=== PATIENT | male | born 1995 | race Two or more races ===

== ENCOUNTER 2024-01-24 12:29 | Emergency (ER) | payer OTHER ==
[~2024-01-24] VITALS: Ht 185.4 cm; Wt 96.8 kg
[2024-01-24] MEDS ORDERED: IBUP-1022 PO (12:48)
[2024-01-24] MEDS ORDERED: ACET32TAB PO (12:48)
[2024-01-24 13:18] LABS: BASO % 0.2 % (0.0-1.0); EOS # 1.5 10^3/uL (0.0-0.5); EOS % 15.3 % (0.0-3.0); HEMATOCRIT 47.4 % (42.0-52.0); LYMPH # 2.6 10^3/uL (1.5-5.0); LYMPH % 26.3 % (24.0-44.0); MEAN CORPUSCULAR HEMOGLOBIN 29.5 pg (27.0-33.0); MEAN CORPUSCULAR HGB CONC 35.9 g/dl (32.0-36.5); MEAN CORPUSCULAR VOLUME 82.3 fl (80.0-96.0); MONO # 0.8 10^3/uL (0.0-0.8); MONO % 8.6 % (2.0-8.0); NEUTROPHILS # 4.8 10^3/uL (1.5-8.5); NEUTROPHILS % 49.3 % (36.0-66.0); PLATELET COUNT, AUTOMATED 173 10^3/uL (150-450); RED BLOOD COUNT 5.76 10^6/uL (4.30-6.10); WHITE BLOOD COUNT 9.8 10^3/uL (4.0-10.0)
[2024-01-24 13:39] LABS: LIPASE 39 U/L (12-53)
[2024-01-24 13:41] LABS: ALKALINE PHOSPHATASE 76 U/L (46-116); ALT/SGPT 48 U/L (7.0-40); AST/SGOT 23 U/L (<34); BILIRUBIN,DIRECT 0.3 MG/DL (<0.4); BLOOD UREA NITROGEN 18 MG/DL (9-23); CALCIUM LEVEL 9.4 MG/DL (8.5-10.1); CARBON DIOXIDE LEVEL 26 MMOL/L (20-31); CHLORIDE LEVEL 108 MMOL/L (98-107); CREATININE FOR GFR 0.91 MG/DL (0.70-1.30); GLOMERULAR FILTRATION RATE > 60.0 (>60); GLUCOSE, FASTING 101 MG/DL (60-100); SODIUM LEVEL 141 MMOL/L (136-145); TOTAL PROTEIN 6.6 G/DL (5.7-8.2)
[2024-01-24] MEDS ORDERED: ISOVUE-370 76% 100ML VIAL As Ordered ONE (16:41)
[2024-01-24] MEDS: KETOROLAC 30 MG/ML 1ML VIAL IV ONE (17:26)
[2024-01-24 18:00] VITALS: BP 130/72; TEMP 98.7; O2SAT 98
[2024-01-24 20:20] LABS: Trichomonas vaginalis (AMP) NOT DETECTED (NEGATIVE)
[2024-01-24 20:43] LABS: GC DNA AMPLIFICATION NEGATIVE (NEGATIVE)
[2024-01-24] MEDS ORDERED: CIPR-249 PO (21:57)
[2024-01-24] MEDS: CIPROFLOXACIN 500MG TABLET PO ONE (22:06)
== END 2024-01-24 22:16 | disposition home or self-care (01) ==
LOC: M ED 12:29
DX: N49.0 Inflammatory disorders of seminal vesicle (principal); Z79.1 Long term (current) use of non-steroidal anti-inflammatories (NSAID); Z79.2 Long term (current) use of antibiotics
CPT/HCPCS: 74177; 80048; 80076; 81001; 83690; 85025; 87661; 87810; 87850; 96374; 99284; J1885; Q9967

== ENCOUNTER 2024-02-05 20:53 | Emergency (ER) | payer OTHER, SELFPAY ==
[~2024-02-05] VITALS: Ht 185.4 cm; Wt 92.1 kg
[~2024-02-05 20:53] MED LIST: ACET32TAB PO; CIPR-249 PO; IBUP-1022 PO
[2024-02-05] MEDS: ONDANSETRON 4MG 2ML VIAL IV ONE (21:30)
[2024-02-05 21:47] LABS: BASO # 0.1 10^3/uL (0.0-0.2); BASO % 0.5 % (0.0-1.0); EOS # 1.4 10^3/uL (0.0-0.5); EOS % 14.7 % (0.0-3.0); HEMATOCRIT 49.1 % (42.0-52.0); HEMOGLOBIN 17.7 g/dl (13.5-17.5); LYMPH # 3.2 10^3/uL (1.5-5.0); LYMPH % 33.9 % (24.0-44.0); MEAN CORPUSCULAR HEMOGLOBIN 29.7 pg (27.0-33.0); MEAN CORPUSCULAR VOLUME 82.5 fl (80.0-96.0); MONO # 0.8 10^3/uL (0.0-0.8); MONO % 8.7 % (2.0-8.0); NEUTROPHILS # 3.9 10^3/uL (1.5-8.5); NEUTROPHILS % 42.1 % (36.0-66.0); PLATELET COUNT, AUTOMATED 205 10^3/uL (150-450); RED BLOOD COUNT 5.95 10^6/uL (4.30-6.10); WHITE BLOOD COUNT 9.3 10^3/uL (4.0-10.0)
[2024-02-05] MEDS: PANTOPRAZOLE 40MG VIAL IV ONE (21:55)
[2024-02-05] MEDS: NS 1,000 ML IV ONE (21:55)
[2024-02-05] MEDS: KETOROLAC 30 MG/ML 1ML VIAL IV ONE (21:56)
[2024-02-05 22:09] LABS: LIPASE 37 U/L (12-53)
[2024-02-05 22:11] LABS: ALBUMIN 4.4 G/DL (3.2-5.2); ALKALINE PHOSPHATASE 90 U/L (46-116); ALT/SGPT 35 U/L (7.0-40); AST/SGOT 17 U/L (<34); BILIRUBIN,DIRECT 0.4 MG/DL (<0.4); BILIRUBIN,TOTAL 1.1 MG/DL (0.3-1.2); BLOOD UREA NITROGEN 11 MG/DL (9-23); CARBON DIOXIDE LEVEL 24 MMOL/L (20-31); CHLORIDE LEVEL 108 MMOL/L (98-107); CREATININE FOR GFR 0.97 MG/DL (0.70-1.30); GLOMERULAR FILTRATION RATE > 60.0 (>60); GLUCOSE, FASTING 85 MG/DL (60-100); POTASSIUM SERUM 3.7 MMOL/L (3.5-5.1); SODIUM LEVEL 140 MMOL/L (136-145); TOTAL PROTEIN 7.4 G/DL (5.7-8.2)
[2024-02-05] MEDS ORDERED: TRAM50TA2 PO (23:26)
[2024-02-06] VITALS: BP 135/75; TEMP 98.5; O2SAT 99
== END 2024-02-06 00:15 | disposition home or self-care (01) ==
LOC: M ED 20:53
DX: R10.9 Unspecified abdominal pain (principal); Z87.891 Personal history of nicotine dependence; Z79.1 Long term (current) use of non-steroidal anti-inflammatories (NSAID); Z79.2 Long term (current) use of antibiotics; Z79.899 Other long term (current) drug therapy
CPT/HCPCS: 74176; 80048; 80076; 81001; 83690; 85025; 93041; 96374; 96375; 99284; C9113; J1885; J2405